=== PATIENT | female | born 1940 | race Caucasian/White ===

== ENCOUNTER 2024-05-09 00:09 | Inpatient (IN) | payer MEDICARE, BC ==
[~2024-05-09] VITALS: Ht 162.6 cm; Wt 53.5 kg
[2024-05-09] MEDS ORDERED: DONE5TAB7 PO (00:44)
[2024-05-09] MEDS ORDERED: MEMA10TA PO ×2 (00:44→09:50)
[2024-05-09] MEDS ORDERED: ESCI5TAB PO (00:44)
[2024-05-09] MEDS: HYDROMORPHONE 1 MG/1 ML DISP.SYRIN IV ONE (01:27)
[2024-05-09 01:28] LABS: BASOPHILS # (AUTO) 0.1 K/UL (0.0-0.2); BASOPHILS % (AUTO) 0.8 % (0.0-2.0); EOSINOPHILS % (AUTO) 0.3 % (0.0-7.0); HEMATOCRIT 39.3 % (31.2-41.9); HEMOGLOBIN 13.2 g/dL (10.9-14.3); LYMPHOCYTES # (AUTO) 1.9 K/uL (0.8-4.8); LYMPHOCYTES % (AUTO) 20.5 % (20.5-51.5); MEAN CORPUSCULAR HEMOGLOBIN 28.8 uug (24.7-32.8); MEAN CORPUSCULAR HGB CONC 34 g/dL (32.3-35.6); MONOCYTES # (AUTO) 0.5 K/uL (0.1-1.30); MONOCYTES % (AUTO) 5.6 % (0.0-11.0); NEUTROPHILS # (AUTO) 6.7 K/uL (1.8-8.9); NEUTROPHILS % (AUTO) 72.8 % (38.5-71.5); PLATELET COUNT (AUTO) 241 K/uL (179-408); RED BLOOD CELL COUNT(AUTO) 4.57 MIL/uL (3.63-4.92); RED CELL DISTRIBUTION WIDTH 14.4 % (12.3-17.7); WHITE BLOOD COUNT (AUTO) 9.2 K/uL (3.8-11.8)
[2024-05-09 01:31] LABS: DIFFERENTIAL COMMENT 1
[2024-05-09 01:42] LABS: ALBUMIN 3.6 g/dL (3.4-5.0)
[2024-05-09 02:07] LABS: CARBON DIOXIDE 26 mmol/L (21-32); CHLORIDE 104 mmol/L (98-107); CREATINE KINASE, TOTAL 64 U/L (26-192); POTASSIUM 3.6 mmol/L (3.5-5.1); SODIUM SERUM 142 mmol/L (136-145)
[2024-05-09 02:08] LABS: ALANINE AMINOTRANSFERASE 24 U/L (14-59); ALKALINE PHOSPHATASE 78 U/L (50-136); ASPARTATE AMINOTRANSFERASE 16 U/L (15-37); BILIRUBIN,TOTAL 0.9 mg/dL (0.2-1.0); CALCIUM 8.9 mg/dL (8.5-10.1); CREATININE 0.7 mg/dL (0.6-1.3); GLUCOSE 122 mg/dL (74-106); TOTAL PROTEIN, SERUM 6.7 g/dL (6.4-8.2); UREA NITROGEN, BLOOD 22 mg/dL (7-18)
[2024-05-09] MEDS ORDERED: MORPHINE SULFATE 2 MG/1 ML DISP.SYRIN IV PRN (02:30)
[2024-05-09 04:30] LABS: *BILIRUBIN,URIN NEGATIVE (NEGATIVE); *CLARITY,URINE CLEAR (CLEAR); *COLOR,URINE YELLOW (YELLOW); *KETONES,URINE 2+ (NEGATIVE); *PROTEIN,URINE NEGATIVE (NEGATIVE); *UROBILINOGEN,URINE 0.2 E.U./dl (NORMAL); LEUKOCYTE ESTERASE ,URINE NEGATIVE (NEGATIVE); NITRITE, URINE NEGATIVE (NEGATIVE); PH,URINE >=9.0 (5.0-8.0); UGLUCOSE NEGATIVE (NEGATIVE)
[2024-05-09 04:31] LABS: *BLOOD, URINE TRACE (NEGATIVE)
[2024-05-09 04:40] LABS: BACTERIA,URINE NONE SEEN /HPF (NONE SEEN); RBC,URINE 0-3 /HPF (0-3); SQUAMOUS EPITHELIAL CELL,UR NONE SEEN /HPF (NONE SEEN); WBC,URINE NONE SEEN /HPF (0-3)
[2024-05-09 05:20] LABS: BASOPHILS % (AUTO) 0.2 % (0.0-2.0); EOSINOPHILS % (AUTO) 0.1 % (0.0-7.0); HEMATOCRIT 37.6 % (31.2-41.9); HEMOGLOBIN 12.4 g/dL (10.9-14.3); LYMPHOCYTES % (AUTO) 7.2 % (20.5-51.5); MEAN CORPUSCULAR HEMOGLOBIN 28.4 uug (24.7-32.8); MEAN CORPUSCULAR HGB CONC 33 g/dL (32.3-35.6); MEAN CORPUSCULAR VOLUME 86.4 fL (75.5-95.3); MONOCYTES # (AUTO) 0.9 K/uL (0.1-1.30); MONOCYTES % (AUTO) 6.2 % (0.0-11.0); NEUTROPHILS # (AUTO) 12.1 K/uL (1.8-8.9); NEUTROPHILS % (AUTO) 86.3 % (38.5-71.5); PLATELET COUNT (AUTO) 214 K/uL (179-408); RED BLOOD CELL COUNT(AUTO) 4.35 MIL/uL (3.63-4.92); RED CELL DISTRIBUTION WIDTH 14.6 % (12.3-17.7)
[2024-05-09 05:44] LABS: DIFFERENTIAL COMMENT 1
[2024-05-09 05:45] LABS: ALANINE AMINOTRANSFERASE 106 U/L (14-59); ALBUMIN 3.4 g/dL (3.4-5.0); ALKALINE PHOSPHATASE 83 U/L (50-136); ASPARTATE AMINOTRANSFERASE 173 U/L (15-37); BILIRUBIN,DIRECT 0.3 mg/dL (0.0-0.2); BILIRUBIN,TOTAL 1.2 mg/dL (0.2-1.0); CALCIUM 8.4 mg/dL (8.5-10.1); CARBON DIOXIDE 28 mmol/L (21-32); CHLORIDE 107 mmol/L (98-107); CREATININE 0.7 mg/dL (0.6-1.3); GLUCOSE 121 mg/dL (74-106); MAGNESIUM 2.2 mg/dL (1.8-2.4); PHOSPHOROUS 3.3 mg/dL (2.5-4.9); POTASSIUM 3.8 mmol/L (3.5-5.1); SODIUM SERUM 143 mmol/L (136-145); TOTAL PROTEIN, SERUM 6.4 g/dL (6.4-8.2); UREA NITROGEN, BLOOD 21 mg/dL (7-18)
[2024-05-09 05:57] LABS: THYROID STIMULATING HORMONE 4.317 mIU/mL (0.358-3.740)
[2024-05-09] MEDS ORDERED: QUET25TA PO (09:50)
[2024-05-09] MEDS ORDERED: ESCI10TA PO (09:50)
[2024-05-09] MEDS ORDERED: DONE5TAB34 PO (09:50)
[2024-05-09] MEDS: PANTOPRAZOLE SODIUM 40 MG VIAL IV SCH (10:19)
[2024-05-09 10:58] VITALS: BP 152/59; TEMP 98.8; O2SAT 97
[2024-05-09] MEDS: MEMANTINE HCL 10 MG TABLET PO SCH (11:21)
[2024-05-09] MEDS: DONEPEZIL 5 MG TABLET PO SCH (11:21)
[2024-05-09] MEDS: ESCITALOPRAM OXALATE 10 MG TABLET PO SCH (11:22)
[2024-05-09 15:00] VITALS: BP 153/62; TEMP 98.3; O2SAT 96
[2024-05-09 20:30] VITALS: BP 163/54; TEMP 98.5; O2SAT 96
[2024-05-09] MEDS: QUETIAPINE FUMARATE 25 MG TABLET PO SCH (21:55)
[2024-05-09] MEDS: IV NS 1000 ML 1,000 ML IV PRN (23:28)
[2024-05-10 05:29] VITALS: BP 151/76; TEMP 98.4; O2SAT 99
[2024-05-10] MEDS ORDERED: VANCOMYCIN 1000 MG VIAL ONE (06:50)
[2024-05-10 07:01] LABS: CALCIUM 8.8 mg/dL (8.5-10.1); CARBON DIOXIDE 27 mmol/L (21-32); CHLORIDE 107 mmol/L (98-107); CREATININE 0.6 mg/dL (0.6-1.3); GLUCOSE 108 mg/dL (74-106); POTASSIUM 3.4 mmol/L (3.5-5.1); SODIUM SERUM 143 mmol/L (136-145); UREA NITROGEN, BLOOD 17 mg/dL (7-18)
[2024-05-10 07:06] LABS: BASOPHILS # (AUTO) 0.1 K/UL (0.0-0.2); BASOPHILS % (AUTO) 0.8 % (0.0-2.0); EOSINOPHILS # (AUTO) 0.2 K/uL (0.0-0.7); EOSINOPHILS % (AUTO) 1.8 % (0.0-7.0); HEMATOCRIT 40.2 % (31.2-41.9); HEMOGLOBIN 13.6 g/dL (10.9-14.3); LYMPHOCYTES # (AUTO) 1.8 K/uL (0.8-4.8); LYMPHOCYTES % (AUTO) 18.3 % (20.5-51.5); MEAN CORPUSCULAR HGB CONC 34 g/dL (32.3-35.6); MEAN CORPUSCULAR VOLUME 86.1 fL (75.5-95.3); MONOCYTES # (AUTO) 0.6 K/uL (0.1-1.30); MONOCYTES % (AUTO) 6.4 % (0.0-11.0); NEUTROPHILS % (AUTO) 72.7 % (38.5-71.5); PLATELET COUNT (AUTO) 200 K/uL (179-408); RED BLOOD CELL COUNT(AUTO) 4.67 MIL/uL (3.63-4.92); RED CELL DISTRIBUTION WIDTH 14.1 % (12.3-17.7); WHITE BLOOD COUNT (AUTO) 9.7 K/uL (3.8-11.8)
[2024-05-10 07:08] LABS: DIFFERENTIAL COMMENT 1
[2024-05-10] MEDS: POTASSIUM CHLORIDE 50 ML IV SCH (07:30)
[2024-05-10] MEDS ORDERED: PROPOFOL 200 MG/20 ML BOTTLE ONE (07:45)
[2024-05-10] MEDS ORDERED: ROCURONIUM BROMIDE 50 MG/5 ML VIAL ONE (08:05)
[2024-05-10] MEDS ORDERED: FENTANYL CITRATE 250 MCG/5 ML AMPUL ONE (08:05)
[2024-05-10] MEDS ORDERED: MORPHINE SULFATE 4 MG/1 ML DISP.SYRIN IV PRN (10:15)
[2024-05-10] MEDS ORDERED: HYDROCODONE/APAP 10-325 MG TABLET PO PRN (10:15)
[2024-05-10 11:24] VITALS: BP 161/73; TEMP 98.7; O2SAT 98
[2024-05-10] MEDS: IV D5W-0.45% NS +20 KCL 1,000 ML IV PRN (11:24)
[2024-05-10] MEDS: ONDANSETRON 4 MG/2 ML VIAL IV PRN (13:13)
[2024-05-10 15:25] VITALS: BP 140/63; TEMP 98.5; O2SAT 98
[2024-05-10] MEDS: CEFAZOLIN 1 G in IV DEXTROSE 5% 50 ML IV SCH (16:11)
[2024-05-10 20:39] VITALS: BP 116/53; TEMP 98.7; O2SAT 96
[2024-05-10] MEDS: APIXABAN 2.5 MG TABLET PO SCH (20:56)
[2024-05-11 06:00] VITALS: BP 159/67; TEMP 99.4; O2SAT 96
[2024-05-11 07:49] LABS: BASOPHILS % (AUTO) 0.5 % (0.0-2.0); EOSINOPHILS # (AUTO) 0.3 K/uL (0.0-0.7); EOSINOPHILS % (AUTO) 3.4 % (0.0-7.0); HEMATOCRIT 33.6 % (31.2-41.9); HEMOGLOBIN 11.5 g/dL (10.9-14.3); LYMPHOCYTES # (AUTO) 1.8 K/uL (0.8-4.8); LYMPHOCYTES % (AUTO) 19.7 % (20.5-51.5); MEAN CORPUSCULAR HEMOGLOBIN 29.5 uug (24.7-32.8); MEAN CORPUSCULAR HGB CONC 34 g/dL (32.3-35.6); MONOCYTES # (AUTO) 0.8 K/uL (0.1-1.30); MONOCYTES % (AUTO) 8.7 % (0.0-11.0); NEUTROPHILS # (AUTO) 6.3 K/uL (1.8-8.9); NEUTROPHILS % (AUTO) 67.7 % (38.5-71.5); PLATELET COUNT (AUTO) 168 K/uL (179-408); WHITE BLOOD COUNT (AUTO) 9.3 K/uL (3.8-11.8)
[2024-05-11 07:59] LABS: DIFFERENTIAL COMMENT 1
[2024-05-11 08:22] LABS: CALCIUM 8.7 mg/dL (8.5-10.1); CARBON DIOXIDE 28 mmol/L (21-32); CHLORIDE 106 mmol/L (98-107); CREATININE 0.6 mg/dL (0.6-1.3); GLUCOSE 137 mg/dL (74-106); POTASSIUM 3.6 mmol/L (3.5-5.1); SODIUM SERUM 140 mmol/L (136-145); UREA NITROGEN, BLOOD 15 mg/dL (7-18)
[2024-05-11] MEDS ORDERED: HYDR-3980 PO (10:01)
[2024-05-11] MEDS ORDERED: APIX2.5T PO (10:01)
[2024-05-11] MEDS ORDERED: MIRALAX 17 GM POWD.PACK PO PRN (11:00)
[2024-05-11] MEDS: MIRALAX 17 GM POWD.PACK PO ONE (11:18)
[2024-05-11 12:00] VITALS: BP 148/60; TEMP 97.4; O2SAT 97
== END 2024-05-11 14:00 | DRG 521 ==
LOC: ER 00:13 → MEDSURG3 02:25
PROVIDERS: ADMIT Nurse Practitioner Family; ATTEND Nurse Practitioner Acute Care
PROC: 0SRR0JA Replacement of Right Hip Joint, Femoral Surface with Synthetic Substitute, Uncemented, Open Approach (ICD-10-PCS; principal; 2024-05-10)
DX: S72.011A Unspecified intracapsular fracture of right femur, initial encounter for closed fracture (principal); G93.41 Metabolic encephalopathy; F03.93 Unspecified dementia, unspecified severity, with mood disturbance; W01.0XXA Fall on same level from slipping, tripping and stumbling without subsequent striking against object, initial encounter; Y92.018 Other place in single-family (private) house as the place of occurrence of the external cause; D72.829 Elevated white blood cell count, unspecified; R79.89 Other specified abnormal findings of blood chemistry; R74.01 Elevation of levels of liver transaminase levels; Z90.49 Acquired absence of other specified parts of digestive tract; Z79.899 Other long term (current) drug therapy
CPT/HCPCS: 36415; 71045; 72170; 73501; 73502; 83735; 84100; 84443; 84484; 85025; 85610; 85730; 93005; A4649; C1776; G0378; J0690; J1170; J2405; J2470; J3010; J3370; J3490; J7040

== ENCOUNTER 2024-05-11 14:15 | Inpatient (IN) | payer MEDICARE, BC ==
[~2024-05-11] VITALS: Ht 162.6 cm; Wt 53.5 kg
[~2024-05-11 14:15] MED LIST: APIX2.5T PO; DONE5TAB34 PO; ESCI10TA PO; HYDR-3980 PO; MEMA10TA PO; QUET25TA PO
[2024-05-11] MEDS: MEMANTINE HCL 10 MG TABLET PO SCH (16:27)
[2024-05-11] MEDS: MAGNESIUM HYDROXIDE 30 ML LIQUID UDC PO ONE (16:27)
[2024-05-11] MEDS: FAMOTIDINE 20 MG TABLET PO SCH (16:29)
[2024-05-11] MEDS: HYDROCODONE/APAP 10-325 MG TABLET PO PRN (16:33)
[2024-05-11] MEDS: BISACODYL 5 MG TABLET.DR PO ONE (18:32)
[2024-05-11] MEDS: APIXABAN 2.5 MG TABLET PO SCH (20:43)
[2024-05-11] MEDS ORDERED: QUETIAPINE FUMARATE 25 MG TABLET PO SCH (21:00)
[2024-05-11 23:20] VITALS: BP 126/49; TEMP 98.4; O2SAT 94
[2024-05-12 06:00] VITALS: BP 131/54; TEMP 99.7; O2SAT 93
[2024-05-12] MEDS: ESCITALOPRAM OXALATE 10 MG TABLET PO SCH (08:30)
[2024-05-12] MEDS: ONDANSETRON ODT 4 MG TAB.RAPDIS SL PRN (08:31)
[2024-05-12] MEDS: DONEPEZIL 5 MG TABLET PO SCH (08:32)
[2024-05-12] MEDS: MIRALAX 17 GM POWD.PACK PO SCH (08:32)
[2024-05-12 12:00] VITALS: BP 118/44; TEMP 98.3; O2SAT 96
[2024-05-12] MEDS ORDERED: BISACODYL 10 MG SUPP.RECT RC PRN (12:30)
[2024-05-12] MEDS: LORAZEPAM 0.5 MG TABLET PO PRN (13:05)
[2024-05-12 16:20] VITALS: BP 126/56; TEMP 97.6; O2SAT 97
[2024-05-12 16:50] LABS: *BILIRUBIN,URIN 1+ (NEGATIVE); *BLOOD, URINE 2+ (NEGATIVE); *CLARITY,URINE CLEAR (CLEAR); *COLOR,URINE YELLOW (YELLOW); *KETONES,URINE 2+ (NEGATIVE); *PROTEIN,URINE 2+ (NEGATIVE); *UROBILINOGEN,URINE 0.2 E.U./dl (NORMAL); LEUKOCYTE ESTERASE ,URINE NEGATIVE (NEGATIVE); NITRITE, URINE NEGATIVE (NEGATIVE); UGLUCOSE NEGATIVE (NEGATIVE)
[2024-05-12 17:02] LABS: BACTERIA,URINE FEW /HPF (NONE SEEN); SQUAMOUS EPITHELIAL CELL,UR FEW /HPF (NONE SEEN); WBC,URINE 0-3 /HPF (0-3)
[2024-05-12] MEDS: ENSURE ENLIVE (VAN) 240 ML LIQUID PO SCH (17:22)
[2024-05-12 20:00] VITALS: BP 131/50; TEMP 98.9; O2SAT 96
[2024-05-13 06:00] VITALS: BP 138/53; TEMP 97.8; O2SAT 98
[2024-05-13 12:00] VITALS: BP 120/57; TEMP 97.6; O2SAT 97
[2024-05-13 20:43] VITALS: BP 125/50; TEMP 98.8; O2SAT 94
[2024-05-14 06:00] VITALS: BP 150/64; TEMP 98.8; O2SAT 97
[2024-05-14 11:44] VITALS: BP 144/61; TEMP 98; O2SAT 96
[2024-05-14 14:13] VITALS: BP 127/56; TEMP 98.8; O2SAT 100
[2024-05-14 16:00] VITALS: BP 130/55; TEMP 98; O2SAT 98
[2024-05-14 20:17] VITALS: BP 135/56; TEMP 98.6; O2SAT 95
[2024-05-15 06:00] VITALS: BP 136/64; TEMP 98.1; O2SAT 99
[2024-05-15 15:23] VITALS: BP 118/56; TEMP 98.7; O2SAT 96
[2024-05-15 20:07] VITALS: BP 105/54; TEMP 98.8; O2SAT 97
[2024-05-16 06:05] VITALS: BP 133/51; TEMP 98.4; O2SAT 98
[2024-05-16 06:49] LABS: BASOPHILS # (AUTO) 0.1 K/UL (0.0-0.2); BASOPHILS % (AUTO) 0.8 % (0.0-2.0); EOSINOPHILS # (AUTO) 0.2 K/uL (0.0-0.7); EOSINOPHILS % (AUTO) 2.8 % (0.0-7.0); HEMATOCRIT 32.1 % (31.2-41.9); HEMOGLOBIN 10.9 g/dL (10.9-14.3); LYMPHOCYTES # (AUTO) 1.6 K/uL (0.8-4.8); LYMPHOCYTES % (AUTO) 20.6 % (20.5-51.5); MEAN CORPUSCULAR HEMOGLOBIN 29.1 uug (24.7-32.8); MEAN CORPUSCULAR HGB CONC 34 g/dL (32.3-35.6); MEAN CORPUSCULAR VOLUME 86.2 fL (75.5-95.3); MONOCYTES # (AUTO) 0.8 K/uL (0.1-1.30); MONOCYTES % (AUTO) 10.3 % (0.0-11.0); NEUTROPHILS # (AUTO) 5.2 K/uL (1.8-8.9); NEUTROPHILS % (AUTO) 65.5 % (38.5-71.5); PLATELET COUNT (AUTO) 268 K/uL (179-408); RED BLOOD CELL COUNT(AUTO) 3.73 MIL/uL (3.63-4.92); RED CELL DISTRIBUTION WIDTH 14.1 % (12.3-17.7); WHITE BLOOD COUNT (AUTO) 7.9 K/uL (3.8-11.8)
[2024-05-16 07:08] LABS: DIFFERENTIAL COMMENT 1
[2024-05-16 07:10] LABS: THYROID STIMULATING HORMONE 1.217 mIU/mL (0.358-3.740)
[2024-05-16 07:31] LABS: ALANINE AMINOTRANSFERASE 83 U/L (14-59); ALBUMIN 2.1 g/dL (3.4-5.0); ALKALINE PHOSPHATASE 121 U/L (50-136); ASPARTATE AMINOTRANSFERASE 77 U/L (15-37); BILIRUBIN,TOTAL 1.1 mg/dL (0.2-1.0); CALCIUM 8.3 mg/dL (8.5-10.1); CARBON DIOXIDE 30 mmol/L (21-32); CHLORIDE 103 mmol/L (98-107); CHOLESTEROL 165 mg/dL (<200); CREATININE 0.6 mg/dL (0.6-1.3); GLUCOSE 98 mg/dL (74-106); HDL CHOLESTEROL 42 mg/dL (40-60); MAGNESIUM 2.3 mg/dL (1.8-2.4); PHOSPHOROUS 4.1 mg/dL (2.5-4.9); POTASSIUM 4.1 mmol/L (3.5-5.1); SODIUM SERUM 139 mmol/L (136-145); TOTAL PROTEIN, SERUM 5.7 g/dL (6.4-8.2); TRIGLYCERIDES 82 MG/DL (30-150); UREA NITROGEN, BLOOD 19 mg/dL (7-18)
[2024-05-16 08:29] LABS: IRON, SERUM 25 ug/dL (50-175)
[2024-05-16 15:20] VITALS: BP 129/67; TEMP 98.2; O2SAT 95
[2024-05-16 22:35] VITALS: BP 117/51; TEMP 98.3; O2SAT 97
[2024-05-17 06:49] VITALS: BP 134/70; TEMP 97.7; O2SAT 97
[2024-05-17 15:25] VITALS: BP 131/58; TEMP 97.7; O2SAT 97
[2024-05-17 20:17] VITALS: BP 143/57; TEMP 98.7; O2SAT 95
[2024-05-18 06:07] VITALS: BP 134/71; TEMP 98.1; O2SAT 96
[2024-05-18 16:00] VITALS: BP 151/65; TEMP 98.7; O2SAT 98
[2024-05-18 17:30] VITALS: BP 121/58; O2SAT 98
[2024-05-18 20:30] VITALS: BP 117/51; TEMP 97.9; O2SAT 99
[2024-05-19 06:32] VITALS: BP 130/56; TEMP 98; O2SAT 98
[2024-05-19 16:41] VITALS: BP 127/52; TEMP 98.9; O2SAT 97
[2024-05-19 20:35] VITALS: BP 133/62; TEMP 99; O2SAT 95
[2024-05-20 06:20] VITALS: BP 114/52; TEMP 97.8; O2SAT 97
[2024-05-20 15:05] VITALS: BP 124/55; TEMP 98.6; O2SAT 96
[2024-05-20 20:00] VITALS: BP 131/56; TEMP 98.5; O2SAT 94
[2024-05-21 15:26] VITALS: BP 122/60; TEMP 97.9; O2SAT 100
[2024-05-21 21:16] VITALS: BP 120/56; TEMP 98.9; O2SAT 97
[2024-05-22 04:33] VITALS: BP 133/54; TEMP 98.8; O2SAT 97
[2024-05-22] MEDS: OMEGA-3 FATTY ACIDS/FISH OIL CAPSULE PO SCH (09:19)
[2024-05-22] MEDS: PROTEIN SUPPLEMENT (PROSTAT) 30 ML LIQUID PO SCH (09:19)
[2024-05-22] MEDS: FERROUS GLUCONATE 324 MG TABLET PO SCH (14:50)
[2024-05-22 16:22] VITALS: BP 123/62; TEMP 98.1; O2SAT 98
[2024-05-22 20:00] VITALS: BP 112/46; TEMP 98.5; O2SAT 98
[2024-05-23 05:00] VITALS: BP 118/49; TEMP 98.1; O2SAT 98
[2024-05-23] MEDS: MEDIHONEY= THERAHONEY 1.5 OZ TUBE TOP SCH (11:58)
[2024-05-23 16:44] VITALS: BP 131/58; TEMP 97.7; O2SAT 98
[2024-05-23 19:00] VITALS: BP 121/72; TEMP 98.4; O2SAT 96
[2024-05-24 06:00] VITALS: BP 132/63; TEMP 98.4; O2SAT 95
[2024-05-24 16:29] VITALS: BP 102/45; TEMP 98.4; O2SAT 96
[2024-05-24 19:00] VITALS: BP 131/52; TEMP 98; O2SAT 96
[2024-05-25 06:00] VITALS: BP 132/59; TEMP 98.8; O2SAT 96
== END 2024-05-25 14:30 | disposition home health service (06) | DRG 559 ==
LOC: MEDSURG3 14:15 → UNDOADMIN 14:15
PROVIDERS: ADMIT Physical Medicine & Rehabilitation Pain Medicine; ATTEND Physical Medicine & Rehabilitation Pain Medicine
DX: Z47.1 Aftercare following joint replacement surgery (principal); E43 Unspecified severe protein-calorie malnutrition; G93.41 Metabolic encephalopathy; D68.59 Other primary thrombophilia; F03.93 Unspecified dementia, unspecified severity, with mood disturbance; F03.94 Unspecified dementia, unspecified severity, with anxiety; R26.89 Other abnormalities of gait and mobility; Z96.641 Presence of right artificial hip joint; F03.90 Unspecified dementia, unspecified severity, without behavioral disturbance, psychotic disturbance, mood disturbance, and anxiety; Z91.81 History of falling; S30.0XXA Contusion of lower back and pelvis, initial encounter; X58.XXXA Exposure to other specified factors, initial encounter; Y92.89 Other specified places as the place of occurrence of the external cause; E88.09 Other disorders of plasma-protein metabolism, not elsewhere classified; E61.1 Iron deficiency; E78.5 Hyperlipidemia, unspecified; F32.A Depression, unspecified
CPT/HCPCS: 36415; 73502; 83550; 83735; 84100; 84443; 85025; 97535-GO-CO; A6213; Q0162